=== PATIENT | female | born 2000 | race African-American/Black ===

== ENCOUNTER 2021-10-29 19:00 | Inpatient (IN) | payer BC, OTHER ==
[2021-10-29] MEDS ORDERED: Misoprostol 200 MCG TAB PR PRN (19:55)
[2021-10-29] MEDS ORDERED: Methylergonovine 0.2 MG/ML VIAL IM PRN (19:55)
[2021-10-29] MEDS ORDERED: Acetaminophen 500 MG TAB PO PRN (19:55)
[2021-10-29] MEDS ORDERED: Carboprost 250 MCG/ML AMP IM PRN (19:55)
[2021-10-29] MEDS ORDERED: Diphenoxylate HCl/Atropine Tablet PO PRN (19:55)
[2021-10-29] MEDS ORDERED: Ibuprofen 800 MG TAB PO PRN (19:55)
[2021-10-29] MEDS ORDERED: Butorphanol Tartrate 1 MG/ML VIAL SLOW IVP PRN (19:55)
[2021-10-29] MEDS ORDERED: Lidocaine 1% (PF) 30 ML VIAL SC PRN (19:55)
[2021-10-29] MEDS ORDERED: Ondansetron PF 4 MG/2 ML Vial IVP PRN (19:55)
[2021-10-29] MEDS ORDERED: hydrALAZINE 20 MG/ML VIAL SLOW IVP PRN (19:55)
[2021-10-29] MEDS ORDERED: Promethazine HCl 25 MG/ML VIAL IM PRN (19:55)
[2021-10-29] MEDS ORDERED: NS w/ Oxytocin 30 units 500 ML IV SCH ×2 (20:00)
[2021-10-29 20:37] VITALS: BMI 25.3
[2021-10-29] MEDS: Lactated Ringer's 1,000 ML IV SCH (21:20)
[2021-10-29 21:40] LABS: Hemoglobin 10.7 g/dL (12.0-15.5); Mean Corpuscular HGB CONC 33.3 g/dL (32.0-36.0); Mean Corpuscular Hemoglobin 25.8 pg (27.0-33.0); Mean Corpuscular Volume 77.5 fl (81.6-98.3); Mean Platelet Volume 9.3 fl (7.4-10.4); Platelet Count 309 10x3/uL (150-450); RBC Distribution Width 17.6 % (11.5-14.5); Red Blood Cell (RBC) Count 4.14 10x6/uL (3.90-5.03); White Blood Cell (WBC) Count 10.1 10x3/uL (3.5-10.5)
[2021-10-29] MEDS: Misoprostol 100 MCG TAB VAG SCH (21:44)
[2021-10-29 22:11] LABS: Hep B Surf Ag Non-Reactive S/CO (NonReactive)
[2021-10-29 22:11] LABS: Syphilis Antibody Nonreactive (Nonreactive); Syphilis Antibody Index 0.05 S/CO (<1.00 Non-Reactive)
[2021-10-29 23:36] LABS: SARS-CoV-2 NAA Rapid Test Not Detected (NotDetected)
[2021-10-30] MEDS: Terbutaline Sulfate 1 MG/ML VIAL ONE ×2 (00:21→03:01)
[2021-10-30] MEDS: Lactated Ringer's 1,000 ML IV SCH ×3 (04:04→22:00)
[2021-10-30] MEDS ORDERED: Famotidine/PF 20 mg/2ml Vial SLOW IVP PRN (04:10)
[2021-10-30] MEDS ORDERED: Bicitra 30 ML UDCUP PO PRN (04:10)
[2021-10-30] MEDS ORDERED: CEFAZOLIN 2 GM VIAL ONE (04:14)
[2021-10-30] MEDS ORDERED: CEFAZOLIN 2 GM in Sodium Chloride 0.9% 100 ML IVPB SCH (04:15)
[2021-10-30] MEDS ORDERED: Fentanyl 100 MCG/2 ML VIAL ONE (04:45)
[2021-10-30] MEDS ORDERED: Morphine PF 10 MG/10 ML VIAL ONE (04:45)
[2021-10-30] MEDS ORDERED: Phenylephrine 10 MG/ML VIAL ONE (04:48)
[2021-10-30] MEDS ORDERED: Dexamethasone 4 mg/ml Vial ONE (05:04)
[2021-10-30] MEDS ORDERED: Ondansetron PF 4 MG/2 ML Vial ONE (05:04)
[2021-10-30] MEDS ORDERED: Meperidine HCl/PF 25 MG/ML VIAL SLOW IVP PRN (06:17)
[2021-10-30] MEDS ORDERED: Ondansetron PF 4 MG/2 ML Vial IVP PRN ×2 (06:17→09:04)
[2021-10-30] MEDS ORDERED: diphenhydrAMINE 50 MG/ML VIAL IVP PRN (06:17)
[2021-10-30] MEDS ORDERED: Ondansetron HCl/PF 4 MG/2 ML Vial IVP PRN (06:17)
[2021-10-30] MEDS ORDERED: Moisturizing Cream (Eucerin) 113 GM JAR TOP PRN (06:17)
[2021-10-30] MEDS ORDERED: Naloxone HCl 0.4 mg/ml Vial IVP PRN ×2 (06:17)
[2021-10-30] MEDS ORDERED: Promethazine HCl 25 MG/ML VIAL IM PRN ×2 (06:17→09:04)
[2021-10-30] MEDS ORDERED: Promethazine HCl 25 MG SUPP PR PRN (06:17)
[2021-10-30] MEDS ORDERED: Fentanyl 100 MCG/2 ML VIAL SLOW IVP PRN (06:17)
[2021-10-30] MEDS ORDERED: Naloxone HCl 0.4 mg/ml Vial IV PRN (06:17)
[2021-10-30] MEDS ORDERED: Ibuprofen 800 MG TAB PO PRN (06:25)
[2021-10-30] MEDS ORDERED: Communication Order-Pharmacy FS SCH (06:30)
[2021-10-30] MEDS ORDERED: Simethicone Chewable 80 MG TAB PO PRN (09:04)
[2021-10-30] MEDS ORDERED: diphenhydrAMINE 25 MG CAP PO PRN (09:04)
[2021-10-30] MEDS ORDERED: Bisacodyl 10 MG SUPP PR PRN (09:04)
[2021-10-30] MEDS ORDERED: hydrALAZINE 20 MG/ML VIAL SLOW IVP PRN (09:04)
[2021-10-30] MEDS ORDERED: Methylergonovine 0.2 MG/ML VIAL IM PRN (09:04)
[2021-10-30] MEDS ORDERED: Misoprostol 200 MCG TAB PR PRN (09:04)
[2021-10-30] MEDS ORDERED: NS w/ Oxytocin 30 units 500 ML IV SCH (09:04)
[2021-10-30 09:58] LABS: Critical Notified Whom: LICAN
[2021-10-30 09:59] LABS: Critical Notified Whom: LICAN; pH (Cord, venous) 7.237 (7.250-7.350)
[2021-10-30] MEDS: Ketorolac Tromethamine 30 MG/ML VIAL IVP SCH ×2 (12:39→18:21)
[2021-10-30] MEDS: Prenatal Vitamin 1 TAB PO SCH (13:26)
[2021-10-30] MEDS: Docusate 100 MG CAP PO SCH (13:26)
[2021-10-30] MEDS: Ferrous Sulfate 325 MG TAB PO SCH (13:26)
[2021-10-30 17:32] LABS: Hemoglobin 9.5 g/dL (12.0-15.5)
[2021-10-31] MEDS: Ketorolac Tromethamine 30 MG/ML VIAL IVP SCH ×2 (00:06→05:53)
[2021-10-31] MEDS: Lactated Ringer's 1,000 ML IV SCH ×2 (01:58→17:32)
[2021-10-31] MEDS: Ferrous Sulfate 325 MG TAB PO SCH ×3 (01:59→21:00)
[2021-10-31] MEDS: Docusate 100 MG CAP PO SCH ×3 (01:59→21:00)
[2021-10-31 05:42] LABS: Hemoglobin 8.7 g/dL (12.0-15.5); Mean Corpuscular HGB CONC 32.5 g/dL (32.0-36.0); Mean Corpuscular Hemoglobin 25.7 pg (27.0-33.0); Mean Corpuscular Volume 79.3 fl (81.6-98.3); Mean Platelet Volume 9.6 fl (7.4-10.4); Platelet Count 271 10x3/uL (150-450); RBC Distribution Width 17.7 % (11.5-14.5); Red Blood Cell (RBC) Count 3.38 10x6/uL (3.90-5.03); White Blood Cell (WBC) Count 15.3 10x3/uL (3.5-10.5)
[2021-10-31] MEDS: Prenatal Vitamin 1 TAB PO SCH (08:52)
[2021-10-31] MEDS: Acetaminophen 325 MG TAB PO PRN ×2 (08:52→19:44)
[2021-10-31] MEDS ORDERED: Boostrix 0.5 ML (Tdap) VIAL IM ONE (09:04)
[2021-10-31] MEDS: Ibuprofen 800 MG TAB PO SCH ×2 (13:13→21:01)
[2021-11-01 03:08] VITALS: TEMP 98.4
[2021-11-01] MEDS: Lactated Ringer's 1,000 ML IV SCH ×2 (05:15→07:21)
[2021-11-01] MEDS: Ibuprofen 800 MG TAB PO SCH ×2 (05:59→14:58)
[2021-11-01] MEDS: Misoprostol 100 MCG TAB VAG SCH ×2 (07:22→07:23)
[2021-11-01] MEDS ORDERED: HYDROcodone/Acetaminophen 5/325 mg Tablet PO PRN (07:33)
[2021-11-01 07:49] VITALS: BP 102/57
[2021-11-01] MEDS: Docusate 100 MG CAP PO SCH (08:42)
[2021-11-01] MEDS: Ferrous Sulfate 325 MG TAB PO SCH (08:42)
[2021-11-01] MEDS: Prenatal Vitamin 1 TAB PO SCH (08:43)
== END 2021-11-01 15:20 | disposition home or self-care (01) | DRG 787 ==
LOC: CSHLD 19:38 → CSHPED 10-30 10:20
PROVIDERS: ADMIT Family Medicine; ATTEND Family Medicine
PROC: 10D00Z1 Extraction of Products of Conception, Low, Open Approach (ICD-10-PCS; principal; 2021-10-30)
PROC: 3E0P7VZ Introduction of Hormone into Female Reproductive, Via Natural or Artificial Opening (ICD-10-PCS; 2021-10-30)
DX: O36.5930 Maternal care for other known or suspected poor fetal growth, third trimester, not applicable or unspecified (principal); O72.1 Other immediate postpartum hemorrhage; O76 Abnormality in fetal heart rate and rhythm complicating labor and delivery; Z37.0 Single live birth; Z3A.38 38 weeks gestation of pregnancy; Z20.822 Contact with and (suspected) exposure to COVID-19; O99.02 Anemia complicating childbirth; D64.9 Anemia, unspecified; Z79.899 Other long term (current) drug therapy; E66.9 Obesity, unspecified; K21.9 Gastro-esophageal reflux disease without esophagitis; O99.62 Diseases of the digestive system complicating childbirth; O99.214 Obesity complicating childbirth; Z90.89 Acquired absence of other organs; O61.0 Failed medical induction of labor
CPT/HCPCS: 36415; 51702; 82805; 85014; 85018; 85027; 86780; 86850; 86900; 86901; 87340; 88307; J1100; J1885; J2274; J2370; J2405; J3010; J3105; J7120; U0002

== ENCOUNTER 2023-06-14 17:14 | Emergency (ER) | payer BC, OTHER ==
[2023-06-14 17:55] LABS: Bilirubin Neg (Negative); Blood, Urine Negative (Negative); Clarity Clear (Clear); Glucose, Urine (Dipstick) Normal (Negative); Ketone, Urine Negative (Negative); Leukocyte Negative (Negative); Nitrite Negative (Negative); Protein, Urine (Dipstick) Negative (Neg-Trace); Specific Gravity, Urine 1.025 (1.005-1.030); Urobilinogen Normal mg/dL (Less than 2)
[2023-06-14 17:58] LABS: Pregnancy Test - Urine (BHCG) Negative (Negative); Pregu Control Background? CLEAR/WHITE (CLR/WHITE); Pregu Control Bar Appear? YES (CONTROL BAR); Specific Gravity 1.025 (1.002-1.036)
[2023-06-14 18:18] LABS: Bacteria/HPF 3+ HPF (None Seen); CAUTI Indications for Culture Pelvic or flank pain; RBC/HPF None Seen HPF (0-3); Urine Culture Reflex No No; WBC/HPF 0-3 HPF (0-3)
== END 2023-06-14 19:35 | disposition home or self-care (01) ==
LOC: CSHERS 17:14
DX: N94.6 Dysmenorrhea, unspecified (principal)
CPT/HCPCS: 81001; 81025; 99284